=== PATIENT | female | born 1940 | race American Indian/Alaskan Native ===

== ENCOUNTER 2019-03-22 12:13 | Observation (INO) | payer MEDICARE ==
[2019-03-22 12:56] LABS: Basophils % (Auto) 0.4 % (0.0-1.8); Eosinophils # (Auto) 0.1 K/mm3 (0.0-0.4); Eosinophils % (Auto) 2.8 % (0.0-4.3); Hemoglobin 12.2 gm/dl (10.1-14.3); Lymphocytes # (Auto) 2.3 K/mm3 (1.2-5.4); Lymphocytes % (Auto) 48.5 % (13.4-35.0); Mean Corpuscular HGB Conc 32 % (30-34); Mean Corpuscular Volume 85 fl (79-97); Monocytes # (Auto) 0.4 K/mm3 (0.0-0.8); Monocytes % (Auto) 8.5 % (0.0-7.3); Platelet Count 151 K/mm3 (140-440); Red Blood Count 4.45 M/mm3 (3.65-5.03); Red Cell Distribution Width 14.1 % (13.2-15.2)
[2019-03-22 13:17] LABS: INR 0.96 (0.87-1.13)
[2019-03-22 13:18] LABS: Partial Thromboplastin Time 35.8 Sec. (24.2-36.6)
[2019-03-22 13:21] LABS: Blood Urea Nitrogen 7 mg/dL (7-17); Calcium 8.9 mg/dL (8.4-10.2)
[2019-03-22 13:36] LABS: Alanine Aminotransferase 6 units/L (7-56)
[2019-03-22 13:37] LABS: Albumin 3.5 g/dL (3.9-5); Hemolysis Index 65
[2019-03-22 13:38] LABS: BUN/Creatinine Ratio 9
[2019-03-22 13:40] LABS: Free T4 (Free Thyroxine) 0.84 ng/dL (0.76-1.46)
--- NOTE | 2019-03-22 13:44 | Cat Scan Report ---
CT HEAD WITHOUT CONTRAST: HISTORY: Syncope. TECHNIQUE: Sequential 2.5mm CT images. COMPARISON: none. FINDINGS: Cerebral Parenchyma: Within normal limits. Cerebellum: Within normal limits. Brainstem: Within normal limits. Ventricles: Normal. Sella: Normal. Extra-axial spaces: Normal. Basal Cisterns: Normal. Intracranial Hemorrhage: None. Midline Shift: None. Calvarium: Normal. Sinuses: Normal. Mastoid Air Cells: Normal. Visualized Orbits: Normal. IMPRESSION: Cranial CT scan within normal limits.
[2019-03-22 14:01] LABS: Bacteria,Urine 1+ /HPF (Negative); Bilirubin,Urine NEG (Negative); Blood,Urine SM (Negative); Color,Urine Yellow (Yellow); Hyaline Casts,Urine 6 /LPF; Mucus,Urine FEW /HPF; Protein,Urine <15 mg/dL mg/dL (Negative); Urobilinogen,Urine < 2.0 mg/dL (<2.0)
--- NOTE | 2019-03-22 14:35 | Cat Scan Report ---
CT SCAN OF THE CERVICAL SPINE: HISTORY: Neck pain. TECHNIQUE: Contiguous 1.25 mm axial images of the cervical spine were obtained. Sagittal and coronal reformatted images. FINDINGS: There is normal alignment of the cervical spine. The body, pedicles and posterior ligaments are intact. No evidence of fracture or subluxation is seen. [id number] multilevel facet arthropathy and degenerative disc disease are identified. The spinal canal appears normal. The prevertebral soft tissues appear normal. IMPRESSION: Cervical spondylosis. No acute process is noted.
--- NOTE | 2019-03-22 15:16 | Emergency Department Report ---
ED Syncope HPI - General Chief Complaint: Syncope Stated Complaint: SYNCOPE /HYPOTENSION Time Seen by Provider: 03/22/19 12:52 Source: patient Exam Limitations: no limitations - History of Present Illness Initial Comments: 79-year-old female past medical history hypertension and cardiac syncope. She reported to a internal carver that she felt weak and then lowered to the ground be fore having a syncopal episode. Unknown length of time of LOC. Patient recalls feeling weak, nauseated and like she was going to have a bowel movement prior to syncopal episode. Patient complain of a mild headache and left-sided neck pain that started prior to syncopal episode. Pain is currently mild. She denies any focal weakness, numbness, chest pain, shortness of breath, or abdominal pain. She did not have much to eat or drink today. EMS reported reported BP 81/48 and pulse of 52 on the scene. After 700 mL of normal saline side blood pressure increased to 107/82. - Related Data Allergies/Adverse Reactions: Allergies No Known Allergies Allergy (Unverified 03/22/19 12:40) ED Review of Systems ROS: Stated complaint: SYNCOPE /HYPOTENSION Other details as noted in HPI Comment: All other systems reviewed and negative ED Past Medical Hx - Past Medical History Previous Medical History?: Yes Hx Hypertension: Yes Additional medical history: Bradycardia - Surgical History Past Surgical History?: Yes Additional Surgical History: rigth knee - Social History Smoking Status: Never Smoker Substance Use Type: None ED Physical Exam - General Limitations: No Limitations - Other Other exam information: General: No limitations, patient is alert in no acute distress Head exam: Atraumatic, normocephalic Eyes exam: Normal appearance, pupils equal reactive to light, extraocular movements intact ENT: Moist mucous membrane, normal oropharynx Neck exam: Normal inspection, full range of motion, no midline tenderness. Left lateral paracervical muscle tenderness greater than the right. Respiratory exam: Clear to auscultation bilateral, no wheezes, rales, crackles Cardiovascular: Bradycardic regular rhythm Abdomen: Soft, nondistended, and nontender, with normal bowel sounds, no rebound, or guarding Extremity: Full range of motion normal inspection no deformity. left popliteal tenderness. No calf tenderness or edema Back: Normal Inspection, full range of motion, no tenderness Neurologic: Alert, oriented x3, cranial nerves intact, no motor or sensory deficit Psychiatric: normal affect, normal mood Skin: Warm, dry, intact ED Course Vital Signs 03/22/19 03/22/19 12:32 13:37 Temperature 97.5 F L Pulse Rate 50 L 54 L Respiratory 16 16 Rate Blood Pressure 117/67 Blood Pressure 126/89 [Right] O2 Sat by Pulse 100 100 Oximetry ED Medical Decision Making - Lab Data Result diagrams: 03/22/19 12:46 03/22/19 12:46 Lab Results 03/22/19 03/22/19 03/22/19 Range/Units 12:46 12:46 12:46 WBC 4.8 (4.5-11.0) K/mm3 RBC 4.45 (3.65-5.03) M/mm3 Hgb 12.2 (10.1-14.3) gm/dl Hct 38.0 (30.3-42.9) % MCV 85 (79-97) fl MCH 27 L (28-32) pg MCHC 32 (30-34) % RDW 14.1 (13.2-15.2) % Plt Count 151 (140-440) K/mm3 Lymph % (Auto) 48.5 H (13.4-35.0) % [place] % (Auto) 8.5 H (0.0-7.3) % Eos % (Auto) 2.8 (0.0-4.3) % Baso % (Auto) 0.4 (0.0-1.8) % Lymph # 2.3 (1.2-5.4) K/mm3 [place] # 0.4 (0.0-0.8) K/mm3 Eos # 0.1 (0.0-0.4) K/mm3 Baso # 0.0 (0.0-0.1) K/mm3 Seg Neutrophils % 39.8 L (40.0-70.0) % Seg Neutrophils # 1.9 (1.8-7.7) K/mm3 PT (12.2-14.9) Sec. INR (0.87-1.13) APTT (24.2-36.6) Sec. Sodium 143 (137-145) mmol/L Potassium 4.3 (3.6-5.0) mmol/L Chloride 107.6 H (98-107) mmol/L Carbon Dioxide 25 (22-30) mmol/L Anion Gap 15 mmol/L BUN 7 (7-17) mg/dL Creatinine 0.8 (0.7-1.2) mg/dL Estimated GFR > 60 ml/min BUN/Creatinine Ratio 9 % Glucose 99 (65-100) mg/dL Calcium 8.9 (8.4-10.2) mg/dL Total Bilirubin 0.50 (0.1-1.2) mg/dL AST 22 (5-40) units/L ALT 6 L (7-56) units/L Alkaline Phosphatase 50 (35-129) units/L Total Creatine Kinase 68 (30-135) units/L CK-MB (CK-2) 1.0 (0.0-4.0) ng/mL CK-MB (CK-2) Rel Index 1.4 (0-4) Troponin T < 0.010 (0.00-0.029) ng/mL Total Protein 6.2 L (6.3-8.2) g/dL Albumin 3.5 L (3.9-5) g/dL Albumin/Globulin Ratio 1.3 % TSH (0.270-4.200) mlU/mL Free T4 (0.76-1.46) ng/dL Urine Color (Yellow) Urine Turbidity (Clear) Urine pH (5.0-7.0) Ur Specific [place] (1.003-1.030) Urine Protein (Negative) mg/dL Urine Glucose (UA) (Negative) mg/dL Urine Ketones (Negative) mg/dL Urine Blood (Negative) Urine Nitrite (Negative) Urine Bilirubin (Negative) Urine Urobilinogen (<2.0) mg/dL Ur Leukocyte Esterase (Negative) Urine WBC (Auto) (0.0-6.0) /HPF Urine RBC (Auto) (0.0-6.0) /HPF U Epithel Cells (Auto) (0-13.0) /HPF Urine Bacteria (Auto) (Negative) /HPF Hyaline Casts /LPF Urine Mucus /HPF 03/22/19 03/22/19 03/22/19 Range/Units 12:55 12:57 13:37 WBC (4.5-11.0) K/mm3 RBC (3.65-5.03) M/mm3 Hgb (10.1-14.3) gm/dl Hct (30.3-42.9) % MCV (79-97) fl MCH (28-32) pg MCHC (30-34) % RDW (13.2-15.2) % Plt Count (140-440) K/mm3 Lymph % (Auto) (13.4-35.0) % [place] % (Auto) (0.0-7.3) % Eos % (Auto) (0.0-4.3) % Baso % (Auto) (0.0-1.8) % Lymph # (1.2-5.4) K/mm3 [place] # (0.0-0.8) K/mm3 Eos # (0.0-0.4) K/mm3 Baso # (0.0-0.1) K/mm3 Seg Neutrophils % (40.0-70.0) % Seg Neutrophils # (1.8-7.7) K/mm3 PT 13.4 (12.2-14.9) Sec. INR 0.96 (0.87-1.13) APTT 35.8 (24.2-36.6) Sec. Sodium (137-145) mmol/L Potassium (3.6-5.0) mmol/L Chloride (98-107) mmol/L Carbon Dioxide (22-30) mmol/L Anion Gap mmol/L BUN (7-17) mg/dL Creatinine (0.7-1.2) mg/dL Estimated GFR ml/min BUN/Creatinine Ratio % Glucose (65-100) mg/dL Calcium (8.4-10.2) mg/dL Total Bilirubin (0.1-1.2) mg/dL AST (5-40) units/L ALT (7-56) units/L Alkaline Phosphatase (35-129) units/L Total Creatine Kinase (30-135) units/L CK-MB (CK-2) (0.0-4.0) ng/mL CK-MB (CK-2) Rel Index (0-4) Troponin T (0.00-0.029) ng/mL Total Protein (6.3-8.2) g/dL Albumin (3.9-5) g/dL Albumin/Globulin Ratio % TSH 1.780 (0.270-4.200) mlU/mL Free T4 0.84 (0.76-1.46) ng/dL Urine Color Yellow (Yellow) Urine Turbidity Clear (Clear) Urine pH 7.0 (5.0-7.0) Ur Specific [place] 1.009 (1.003-1.030) Urine Protein <15 mg/dl (Negative) mg/dL Urine Glucose (UA) Neg (Negative) mg/dL Urine Ketones Neg (Negative) mg/dL Urine Blood Sm (Negative) Urine Nitrite Neg (Negative) Urine Bilirubin Neg (Negative) Urine Urobilinogen < 2.0 (<2.0) mg/dL Ur Leukocyte Esterase Neg (Negative) Urine WBC (Auto) 2.0 (0.0-6.0) /HPF Urine RBC (Auto) 3.0 (0.0-6.0) /HPF U Epithel Cells (Auto) 4.0 (0-13.0) /HPF Urine Bacteria (Auto) 1+ (Negative) /HPF Hyaline Casts 6 /LPF Urine Mucus Few /HPF - EKG Data -: EKG Interpreted by Ak EKG shows normal: sinus rhythm, axis (35), QRS complexes (qrsd 87), ST-T waves (no stemi/t inv) Rate: bradycardia (50) - Radiology Data Radiology results: report reviewed CT SCAN OF THE CERVICAL SPINE: HISTORY: Neck pain. TECHNIQUE: Contiguous 1.25 mm axial images of the cervical spine were obtained. Sagittal and coronal reformatted images. FINDINGS: There is normal alignment of the cervical spine. The body, pedicles and posterior ligaments are intact. No evidence of fracture or subluxation is seen. Enli-[id number] multilevel facet arthropathy and degenerative disc disease are identified. The spinal canal appears normal. The prevertebral soft tissues appear normal. IMPRESSION: Cervical spondylosis. No acute process is noted. CT HEAD WITHOUT CONTRAST: HISTORY: Syncope. TECHNIQUE: Sequential 2.5mm CT images. COMPARISON: none. FINDINGS: Cerebral Parenchyma: Within normal limits. Cerebellum: Within normal limits. Brainstem: Within normal limits. Ventricles: Normal. Sella: Normal. Extra-axial spaces: Normal. Basal Cisterns: Normal. Intracranial Hemorrhage: None. Midline Shift: None. Calvarium: Normal. Sinuses: Normal. Mastoid Air Cells: Normal. Visualized Orbits: Normal. IMPRESSION: Cranial CT scan within normal limits. b/l Dopper prelimnary (report pending) no dvt, left Carmona cyst cartod doppler report pending - Medical Decision Making Plan to admit patient to hospital for further syncope workup. - Differential Diagnosis vasovagal, anemia, arrhythmia, infection, dehydration, carotid stenosis Critical Care Time: No Critical care attestation.: If time is entered above; I have spent that time in minutes in the direct care of this critically ill patient, excluding procedure time. ED Disposition Clinical Impression: Syncope, Bradycardia Disposition: DC-09 OP ADMIT IP TO THIS HOSP Is pt being admited?: Yes Condition: Stable Time of Disposition: 16:03 (Dr Wolff/hosp)
--- NOTE | 2019-03-22 16:20 | Vascular Lab Report ---
PROCEDURE: VL VENOUS DUPLEX LE BILAT TECHNIQUE: Shaw scale, color and pulsed Doppler ultrasound with color flow and spectral analysis eval uation of both lower extremities were performed to assess for deep vein thrombosis. HISTORY: Syncope. Left posterior knee pain COMPARISONS: None currently available. FINDINGS: RIGHT extremity: There is normal grayscale appearance and compressibility. Normal phasic pulsed Doppler and normal col or Doppler flow are visualized. The interrogated vessels show normal augmentation. LEFT extremity: There is normal grayscale appearance and compressibility. Normal phasic pulsed Doppler and normal col or Doppler flow are visualized. The interrogated vessels show normal augmentation. IMPRESSION: * No evidence for DVT. This document is electronically signed by Charanjit Cedeño MD., March 22 2019 04:18:44 PM ET
--- NOTE | 2019-03-22 16:23 | Vascular Lab Report ---
PROCEDURE: VL CAROTID DUPLEX BILAT TECHNIQUE: Carotid ultrasound. Degree of carotid stenosis calculated by indirect methods via the peak systolic velocities of the ICA and CCA and reference with the society of Radiologist and Ultrasound consensus conference radiology 2003. HISTORY: Syncope. COMPARISONS: None currently available. FINDINGS: Note: Measurement of carotid stenosis is based on flow velocity values that correlate with the [place] Symptomatic Carotid Endarterectomy Trial (NASCET) based stenosis criteria using the internal carotid artery diameter as the denominator for stenosis calculation. RIGHT CCA, ICA, and ECA (cm/s): 78, 113, and 55. Ratio = 1.4. LEFT CCA, ICA, and ECA (cm/s): 81, 129, and 69. Ratio = 1.6. Smooth heterogeneous plaque noted bilaterally. Both vertebral arteries demonstrate antegrade flow. Normal spectral rhythm is identified. IMPRESSION: * No hemodynamically significant (>50%) stenosis noted based on the ratios, velocities, and color Do ppler images. This document is electronically signed by Charanjit Cedeño MD., March 22 2019 04:21:56 PM ET
--- NOTE | 2019-03-23 01:50 | Event Note ---
Date: 03/22/19 See H/p in reports Syncope Htn Hyothyroidism
[2019-03-23] MEDS ORDERED: DILAUDID IV PRN (01:51)
[2019-03-23] MEDS ORDERED: SODIUM CHLORIDE FLUSH SYRINGE 10 ML IV PRN (01:51)
[2019-03-23] MEDS ORDERED: ZOFRAN IV PRN (01:51)
[2019-03-23] MEDS ORDERED: TYLENOL PO PRN (01:51)
[2019-03-23] MEDS ORDERED: PERCOCET 5/325 PO PRN (01:51)
--- NOTE | 2019-03-23 02:38 | History and Physical Report ---
CHIEF COMPLAINT: Syncope in the morning. HISTORY OF PRESENT ILLNESS: A 79-year-old female with history of hypertension and hypothyroidism, passed out around 10:00 a.m. The patient was at a blood bank attendant. She felt weak and then fell down to the ground. EMS was called. There was loss of consciousness for a few seconds. No chest pain. [place] nauseated. No shortness of breath. The patient had a similar episode a couple of years ago. When the EMS arrived, her blood pressure was 81/48 and pulse was 52. The patient was given some saline after which the blood pressure increased to 107/82. No precipitating factors. No exacerbating factors. Relieving factor was lying down. PAST MEDICAL HISTORY: Significant for hypertension and bradycardia. PAST SURGICAL HISTORY: Right knee surgery. SOCIAL HISTORY: Does not smoke. No recreational drugs. FAMILY HISTORY: Hypertension. REVIEW OF SYSTEMS: Significant for syncope, passed out near the blood bank attendant for a few seconds. Otherwise, review of systems negative. PHYSICAL EXAMINATION: GENERAL: Elderly female, cooperative during examination. VITAL SIGNS: Initial blood pressure was 81/48, which have improved to 154/56, temperature 98.5, pulse 68, respirations 16. HEENT: Unremarkable. Pupils equal and reactive. NECK: Supple, no lymphadenopathy, no thyromegaly. LUNGS: Clear to auscultation and percussion. Good air entry. CARDIOVASCULAR: S1, S2 heard. No gallop, no murmur, no rub. Apical impulse in left fifth intercostal space and midclavicular line. ABDOMEN: Soft and benign. No hepatosplenomegaly. No guarding, no rigidity. Hernial orifices are normal. EXTREMITIES: Good pedal pulses. No pedal edema. CENTRAL NERVOUS SYSTEM: Alert and oriented x 4, nonfocal exam. LABORATORY DATA: CBC is normal. MCH is slightly low at 27. Electrolytes are normal. Albumin is slightly low at 3.5. Urine is normal. EKG shows bradycardia. Heart rate of 50 per minute. Carotid duplex scan shows no hemodynamically significant stenosis. Duplex scan of the lower extremity shows no evidence of DVT. Cervical spine CT shows cervical spondylosis. Head CT is within normal limits. ASSESSMENT AND PLAN: 1. Syncope. Syncope workup. The patient already had carotid duplex scan, which showed no hemodynamically significant stenosis. We will get Lexiscan and echocardiogram. 2. Hypertension. Continue antihypertensives. 3. Hypothyroidism. Check TSH and continue Synthroid. 4. Deep venous thrombosis prophylaxis, Lovenox 40 mg subcutaneous daily. JOB# [id number] VSM/NTS
[2019-03-23] MEDS ORDERED: SYNTHROID PO SCH (06:00)
[2019-03-23 06:29] LABS: Albumin 3.7 g/dL (3.9-5); BUN/Creatinine Ratio 12; Blood Urea Nitrogen 7 mg/dL (7-17); Calcium 8.9 mg/dL (8.4-10.2); Hemolysis Index 2
[2019-03-23 06:32] LABS: Alanine Aminotransferase < 5 units/L (7-56)
[2019-03-23] MEDS ORDERED: PEPCID PO SCH (10:00)
[2019-03-23] MEDS ORDERED: HALFPRIN EC PO SCH (10:00)
[2019-03-23] MEDS ORDERED: SODIUM CHLORIDE FLUSH SYRINGE 10 ML IV SCH (10:00)
[2019-03-23] MEDS ORDERED: PROCARDIA XL PO SCH (10:00)
[2019-03-23] MEDS ORDERED: LEXISCAN IV ONE (10:17)
[2019-03-23] MEDS ORDERED: AFLURIA QUAD 2018-2019 SYRINGE IM ONE (12:00)
--- NOTE | 2019-03-23 13:34 | Progress Note ---
Subjective Date of service: 03/23/19 Objective - Constitutional Vitals: Vital Signs - 12hr 03/23/19 03/23/19 03/23/19 04:53 10:19 10:51 Temperature 98.5 F Pulse Rate 54 L Respiratory 18 Rate Blood Pressure 119/32 128/49 129/51 O2 Sat by Pulse 97 Oximetry 03/23/19 03/23/19 03/23/19 10:52 10:53 10:54 Temperature Pulse Rate Respiratory Rate Blood Pressure 115/41 110/44 115/42 O2 Sat by Pulse Oximetry 03/23/19 03/23/19 10:55 10:56 Temperature Pulse Rate Respiratory Rate Blood Pressure 107/38 106/44 O2 Sat by Pulse Oximetry - Labs CBC & Chem 7: 03/22/19 12:46 03/23/19 05:15 Labs: Abnormal lab results 03/22/19 03/23/19 Range/Units 12:46 05:15 Chloride 107.4 H (98-107) mmol/L Creatinine 0.6 L (0.7-1.2) mg/dL ALT 6 L < 5 L (7-56) units/L Total Protein 6.2 L 6.2 L (6.3-8.2) g/dL Albumin 3.5 L 3.7 L (3.9-5) g/dL
--- NOTE | 2019-03-23 14:05 | Discharge Summary ---
Providers - Providers Date of Admission: 03/22/19 16:08 Date of discharge: 03/23/19 Attending physician: CHRIS LAGUNAS 03/23/19 12:05 Physical Therapy Evaluation and Treat [CONS] Routine Comment: Reason For Exam: placement Primary care physician: KHOI GARCIAS Hospitalization Condition: Stable Pertinent studies: Head CT cervical CT 2d echo LE doppler CXR Carotid doppler Hospital course: 79-year-old female past medical history hypertension and previous syncope presented to the hospital with a syncopal episode. Patient complained of a mild headache and left-sided neck pain that started prior to syncopal episode. She denied any focal weakness, numbness, chest pain, shortness of breath, or abdo dawson pain. EMS reported reported BP 81/48 and pulse of 52 on the scene. After 700 mL of normal saline blood pressure increased to 107/82. She was admitted to the hospital for further evaluation and management. Her CT scan of the hand did not revealed any acute intracranial process. She was maintained on IV fluid hydration, held her home BP medications. Patient started to feel better and wanted to go home. She was recommended to hold her blood pressure medications and to follow-up with her primary care physician in a week. She also advise to record her blood pressure in a diary every day. Patient verbalized understanding and was discharged home in stable condition.. Discharge diagnosis: Syncope, due to hypotension Htn, stable w/o meds, held to BP meds on discharge Hyothyroidism, continue Synthroid DVT Px Disposition: DC- TO HOME OR SELFCARE Time spent for discharge: 34 minutes Core Measure Documentation - Palliative Care Palliative Care/ Comfort Measures: Not Applicable - Core Measures Any of the following diagnoses?: none Exam - Constitutional Vitals: Temp Pulse Resp BP Pulse Ox 98.5 F 74 18 107/38 97 03/23/19 04:53 03/23/19 10:56 03/23/19 04:53 03/23/19 10:56 03/23/19 04:53 General appearance: Present: no acute distress, well-nourished - EENT Eyes: Present: PERRL ENT: hearing intact, clear oral mucosa - Neck Neck: Present: supple, normal ROM - Respiratory Respiratory effort: normal Respiratory: bilateral: CTA - Cardiovascular Heart Sounds: Present: S1 & S2. Absent: rub, click - Extremities Extremities: pulses symmetrical, No edema Peripheral Pulses: within normal limits - Abdominal General gastrointestinal: Present: soft, non-tender, non-distended, normal bowel sounds - Integumentary Integumentary: Present: clear, warm, dry - Musculoskeletal Musculoskeletal: gait normal, strength equal bilaterally - Psychiatric Psychiatric: appropriate mood/affect, intact judgment & insight - Neurologic Neurologic: CNII-XII intact, moves all extremities Plan Activity: advance as tolerated, fall precautions Diet: regular Special Instructions: record daily BP diary Follow up with: KHOI GARCIAS MD [Primary Care Provider] - 7 Days
--- NOTE | 2019-03-23 15:32 | Treadmill Report ---
INDICATION: Syncope. ORDERING PHYSICIAN: Kamaljit Wolff MD FINDINGS: There is no scintigraphic evidence of myocardial ischemia. The left ventricle is normal in size and systolic function, left ventricular ejection fraction is measured at 76%. Normal wall motion and wall thickening is noted on gated imaging. CONCLUSION: Normal perfusion scan. JOB# [id number] AKEric/NTS
[2019-03-23 18:22] VITALS: BP 122/85
[2019-03-23] MEDS ORDERED: LOVENOX SUB-Q SCH (22:00)
== END 2019-03-23 20:00 | disposition home or self-care (01) ==
LOC: ED 12:13 → 4A 16:08
PROVIDERS: ADMIT Internal Medicine; ATTEND Internal Medicine
DX: R55 Syncope and collapse (principal); I95.9 Hypotension, unspecified; I10 Essential (primary) hypertension; E03.9 Hypothyroidism, unspecified; Z98.890 Other specified postprocedural states
CPT/HCPCS: 36415; 70450; 72125; 78452; 80053; 81001; 82550; 82553; 83036; 84439; 84443; 84484; 85025; 85610; 85730; 93005; 93010; 93017; 93306; 93880; 93970; 99284; A9502; G0378; J2785; 90686